=== PATIENT | female | born 1965 | race Two or more races ===

== ENCOUNTER 2018-12-12 19:34 | Emergency (ER) | payer MEDICAID, OTHER ==
[~2018-12-12] VITALS: Ht 152.4 cm; Wt 72.6 kg
[2018-12-13 00:59] VITALS: BP 116/62
[2018-12-13] MEDS ORDERED: TETANUS-DIPTH-ACEL PERTUSSIS 0.5ML SYRG IM ONE (01:15)
[2018-12-13] MEDS ORDERED: HYDROcodone-ACET 5/325MG TAB PO ONE (01:15)
[2018-12-13] MEDS ORDERED: cefTRIAXone SOD 1,000 MG VL IM ONE (01:15)
[2018-12-13] MEDS ORDERED: LIDOCAINE 1% HCL (LOCAL ANESTH.) INJ 20ML MDV ONE (01:15)
== END 2018-12-13 03:08 | disposition home or self-care (01) ==
LOC: EDBD 19:34 → ER 19:34
DX: S46.911A Strain of unspecified muscle, fascia and tendon at shoulder and upper arm level, right arm, initial encounter (principal); S00.03XA Contusion of scalp, initial encounter; M54.2 Cervicalgia; Z91.040 Latex allergy status; W18.39XA Other fall on same level, initial encounter; Y93.89 Activity, other specified; Y99.8 Other external cause status; Y92.89 Other specified places as the place of occurrence of the external cause
CPT/HCPCS: 70450; 70486; 72125; 73020; 94761; 96372; 99284; J0696; J2001; 90715

== ENCOUNTER 2021-03-25 21:31 | Emergency (ER) | payer MEDICAID ==
[~2021-03-25] VITALS: Ht 154.9 cm; Wt 60.3 kg
[2021-03-25 22:22] LABS: Urine Bacteria NONE SEEN /hpf (None Seen); Urine Blood Negative /uL (Negative); Urine Specific Gravity 1.016 (1.001-1.035); Urine WBC 1 /hpf (0 - 5)
[2021-03-25 22:25] LABS: Basophils # (auto) 0.1 10 ^3/uL (0-0.2); Basophils % (auto) 0.6 % (0.0-2.0); Eosinophils # (auto) 0.4 10 ^3/uL (0-0.8); Eosinophils % (auto) 4.5 % (0.0-7.0); Hematocrit 37.5 % (36.0-46.0); Lymphocytes # (auto) 3.3 10 ^3/uL (0.4-5.4); Lymphocytes % (auto) 35.6 % (10.0-50.0); Mean Corpuscular Hemoglobin 30.6 pg (28.0-32.0); Mean Corpuscular Hgb Conc. 34.7 g/dL (32.0-36.0); Mean Corpuscular Volume 88.2 fL (80.0-100.0); Monocytes # (auto) 0.9 10 ^3/uL (0-1.3); Monocytes % (auto) 9.4 % (0.0-12.0); Neutrophils # (auto) 4.7 10 ^3/uL (1.6-8.6); Neutrophils % (auto) 49.9 % (37.0-80.0); Nucleated Red Blood Cells % 0.1 %; Platelet Count (auto) 282 10^3/uL (140-450); Red Blood Cells 4.25 10^6/uL (4.0-5.20); Red Cell Distribution Width 13.9 % (11.8-14.3); White Blood Cell 9.3 10^3/uL (4.4-10.8)
[2021-03-25 22:41] LABS: Albumin 3.5 g/dL (3.4-5.0); Anion Gap 7 (5-15); Blood Urea Nitrogen 20 mg/dL (7-18); Calcium 8.2 mg/dL (8.5-10.1); Carbon Dioxide 24 mmol/L (21-32); Chloride 108 mmol/L (98-107); Glucose 113 mg/dL (74-106); Magnesium 2.3 mg/dL (1.6-2.6); Potassium 3.6 mmol/L (3.5-5.1); Sodium 139 mmol/L (136-145)
[2021-03-25 22:47] LABS: Alanine Aminotransferase 19 U/L (13-56); Alkaline Phosphatase 99 U/L (45-117); Aspartate Aminotransferase 12 U/L (15-37); BUN/Creatinine Ratio 36.4; Bilirubin, Total 0.2 mg/dL (0.2-1.0); GFR African American 147 mL/min; GFR Non-African American 121 mL/min; Total Protein 7.3 g/dL (6.4-8.2)
[2021-03-25 22:50] LABS: INR 0.95 (0.9-1.15); Partial Thromboplastin Time 26.7 sec (23.0-31.2)
[2021-03-26 01:50] VITALS: BP 144/81
== END 2021-03-26 01:58 | disposition home or self-care (01) ==
LOC: ER 21:33
DX: F41.9 Anxiety disorder, unspecified (principal); M25.511 Pain in right shoulder; R11.2 Nausea with vomiting, unspecified; R07.9 Chest pain, unspecified; Z91.040 Latex allergy status
CPT/HCPCS: 36415; 71045; 80053; 81001; 83735; 83880; 84484; 85025; 85610; 85730; 93005